=== PATIENT | female | born 1995 | race Caucasian/White ===

== ENCOUNTER 2023-06-20 08:57 | Outpatient (AMB) | payer OTHER, SELFPAY ==
[2023-06-20 09:00] VITALS: BP 112/66; PULSE 82; RESP 13; TEMP 36.6; O2SAT 99; BMI 21.5
--- NOTE | 2023-06-20 09:00 | A.OFFPC_ITS ---
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 Required: No Accompanied by: Self / Same As Patient Allergies No Known Allergies Allergy (Verified 06/20/23 09:31) Medication List - Last Reconciled 06/20/23 by Irvin Langston CNP buspirone 7.5 mg PO BID fluoxetine 40 mg PO DAILY hydroxyzine pamoate 25 - 50 mg PO BEDTIME PRN lamotrigine 100 mg PO DAILY norethindrone-e.estradiol-iron 1 mg-20 mcg (21)/75 mg (7) (08/03 ()) 1 tab PO DAILY Tobacco use date assessed: 06/20/23 Dental Screening Dental Screen Date: 06/20/23 Did you have a dental visit in the last 12 months?: No Did you have a dental problem in the last 6 months where you did not have access to dental care?: No Was dental information given to patient?: Yes HPI HPI Comments History of Present Illness Details New patient Prior PCP:?clark Cheng Last office visit/CPE: Over 10 years Last routine blood work: Over 5 years Acute issue(s): Bipolar 1 disorder, anxiety, depression -She is on buspirone 7.5 mg twice daily, fluoxetine 40 mg daily, hydroxyzine 25- 50 mg as needed at bedtime, and lamotrigine 100 mg daily She is followed by a psychiatrist via telehealth from [facility]. She sees her psychiatrist every 2 months. Her psychiatrist manages her psychotropic medication PMHx: Bipolar 1 disorder, anxiety, depression, and eating disorder (childhood) SurgHx:Exlap and Biopsy 2009 FHx: Mom: Asthma, clotting disorder, DM. Dad: Psychiatric disorder. MGM: Cancer. MGF: HTN, HLD. PGF: HTN, HLD, psychiatric disorder SocHx: Nonsmoker. Occasional drinker. Smokes cannabis 2 times weekly. She denies acute symptoms at this time She notes that her last pap smear test was in 08/2022 with [facility] Women's Health: normal She notes that she is sexually active, in a monogamous relationship, and practices safe sex [facility] Medical History (Updated 06/20/23 @ 14:15 by Alison Ferris MA) Eating disorder Bipolar 1 disorder Depression Anxiety Surgical History (Updated 06/20/23 @ 09:10 by Alison Ferris MA) Hx of tonsillectomy [place] teeth removed Family History (Updated 06/20/23 @ 09:13 by Alison Ferris MA) Mother Asthma Diabetes Clotting disorder Father Psychiatric disorder Maternal Grandmother Cancer Maternal Grandfather High blood pressure High cholesterol Paternal Grandfather Psychiatric disorder High blood pressure High cholesterol Social History Housing: House Patient Tobacco Use Status: Never used Tobacco e-Cigarette/Vaping Use: Never Used service: No Current occupational status: unemployed Cognitive needs: No Hearing needs: No Vision needs: No Questionnaire PHQ-9 Over the last 2 weeks, how often have you been bothered by any of the following problems? 1. Little interest or pleasure in doing things: several days 2. Feeling down, depressed, or hopeless: several days 3. Trouble falling or staying asleep, or sleeping too much: nearly every day 4. Feeling tired or having little energy: several days 5. Poor appetite or overeating: several days 6. Feeling bad about yourself - or that you are a failure or have let yourself or your family down: several days 7. Trouble concentrating on things, such as reading the newspaper or watching television: not at all 8. Moving or speaking so slowly that other people could have noticed. Or the opposite - being so fidgety or restless that you have been moving around a lot more than usual: not at all 9. Thoughts that you would be better off or of hurting yourself in some way: not at all Total score: 8 Depression Screening Interpretation: Positive Depression Screening Follow-up: Existing condition and In treatment Depression Screening Done: Yes 59782 - PHQ-9 Billing: Yes Source: Developed by Drs. Jonh Lamas, Precious Granados, Angel Hickman and colleagues, with an educational josé from [employer]. Thrive Questionnaire Date Thrive assessed: 06/20/23 I am a: Patient What is your living situation today?: I have a steady place to live Within the past 12 months, did the food you bought not last and you didn't have the money to get more?: Never true Within the past 12 months, did you worry whether your food would run out before you got money to buy more?: Never true Do you have trouble paying for medicines?: No Do you have trouble getting transportation to medical appointments?: No Do you have trouble paying your heating and electricity bill?: No Do you have trouble taking care of your child, family member or friend?: No Do you have trouble with day-to-day activities such as bathing, preparing meals, shopping, managing finances, etc.?: No Are you currently unemployed and looking for a job?: No Are you interested in more education?: No Please select the resources that you would like help with: None Currently or been in a relationship where the following occur: no concerns reported AUDIT C Alcohol Use Questionnaire (AUDIT-C) 1. How often do you have a drink containing alcohol?: Monthly or less 2. How many drinks containing alcohol do you have on a typical day when you are drinking?: 1 or 2 3. How often do you have six or more drinks on one occasion?: Less than monthly Total Score: 2 ANAYA-7 AMB Questionnaire ANAYA-7 Date ANAYA - 7 assessed: 06/20/23 Feeling nervous, anxious, or on edge: 1 = Several days Not being able to stop or control worryin = Several days Worrying too much about different things: 1 = Several days Trouble relaxin = Several days Being so restless that it is hard to sit still: 0 = Not at all Becoming easily annoyed or irritable: 1 = Several days Feeling afraid as if something awful might happen: 1 = Several days Total ANAYA-7 score (0-4 normal; 5-9 mild; 10-14 moderate; 15-21 severe): 6 Source: Developed by Drs. Jonh Lamas, Precious Granados, Angel Hickman and colleagues, with an educational josé from [employer]. ANAYA-7 Assessment Billing ANAYA-7 Assessment Tool: ANAYA-7 Assessment 84474 Physical exam (Primary Care) Vital Signs: Last Vital Signs Temp 97.8 F 06/20/23 09:00 Pulse 82 06/20/23 09:00 Resp 13 06/20/23 09:00 BP 112/66 06/20/23 09:00 Pulse Ox 99 06/20/23 09:00 Oxygen Delivery Method Room Air 06/20/23 09:00 BMI result Body Mass Index 21.5 Tobacco/Smoking Status: Tobacco use Status Tobacco use date assessed 06/20/23 06/20/23 09:15 Patient Tobacco Use Status Never used Tobacco 06/20/23 09:15 e-Cigarette/Vaping Use Never Used 06/20/23 09:15 PHQ-9: PHQ-9 Score PHQ-9: Total score 8 06/20/23 12:24 Depression Screening Interpretation: Positive Depression Screening Follow-up: Existing condition and In treatment Thrive Assessment: Date of Thrive Assessment Date Thrive assessed 06/20/23 06/20/23 09:15 Currently or been in a relationship where the following occur: no concerns reported Assessment and Plan Assessment & Plan (1) Normal physical examination, routine: Code(s): Z00.00 - Encounter for general adult medical examination without abnormal findings Plan: Normal physical exam of a 27-year-old female No significant physical restrictions or limitations noted Continue current treatment regimen Advised to get routine blood work done and schedule a telehealth visit for labs review Return with symptoms or concerns Verbalized understanding and agreed with treatment plan (2) Anxiety: Code(s): F41.9 - Anxiety disorder, unspecified Plan: Reports controlled anxiety, depression, and bipolar symptoms on current treatment regimen PHQ-9 and ANAYA-7 scores revealed mild depression and anxiety respectively Continue current treatment regimen Continue follow-up with psychiatrist as planned Return with worsening or new symptoms Verbalized understanding and agreed with treatment plan (3) Depression: Code(s): F32.A - Depression, unspecified Plan: As above (4) Bipolar 1 disorder: Code(s): F31.9 - Bipolar disorder, unspecified Plan: As above (5) Laboratory tests ordered as part of a complete physical exam (CPE): Code(s): Z00.00 - Encounter for general adult medical examination without abnormal findings Plan: Fasting labs ordered as part of a complete physical exam. Advised to fast for at least 10 hours before getting labs drawn. May drink water Verbalized understanding and agreed with treatment plan. Orders: Orders Complete Blood Count Auto Diff Today Z00.00 - Encounter for general adult medical examination without abnormal findings Comprehensive [place]. Panel Fast Today Z00.00 - Encounter for general adult medical examination without abnormal findings Lipid Panel Today Z00.00 - Encounter for general adult medical examination without abnormal findings TSH reflex Free T4 Today Z00.00 - Encounter for general adult medical examination without abnormal findings UA CC w/rflx Micro + Cult Today Z00.00 - Encounter for general adult medical examination without abnormal findings Coding Level of Care Code New Pt Prev Care 18-39yr([id number] Diagnoses Normal physical examination, routine Z00.00 Anxiety F41.9 Depression F32.A Bipolar 1 disorder F31.9 Laboratory tests ordered as part of a complete physical exam (CPE) Z00.00 Additional Codes ANAYA-7 Assessment Billing - ANAYA-7 Assessment Tool: ANAYA-7 Assessment [id number] ([id number])
== END 2023-06-20 10:03 | disposition home or self-care (01) ==
PROVIDERS: PCP Nurse Practitioner Family; Visit Provider Nurse Practitioner Family
DX: Z00.00 Encounter for general adult medical examination without abnormal findings (principal); F41.9 Anxiety disorder, unspecified; F31.9 Bipolar disorder, unspecified
CPT/HCPCS: 96127; 99385

== ENCOUNTER 2024-07-20 11:34 | Outpatient (AMB) | payer OTHER, SELFPAY ==
--- NOTE | 2024-07-20 11:42 | A.OFFPC_ITS ---
Vital Signs 07/20/24 11:46 Height 5 ft 7 in Weight 145 lb 4 oz BMI 22.7 BP 94/62 Blood Pressure Location Lt brachial Position Sitting Pulse 103 H Pulse Source Pulse Oximeter Pulse Oximetry (%) 98 Oxygen Delivery Method Room Air Intake Visit Reasons: dariusz trying to get Allergies No Known Allergies Allergy (Verified 07/20/24 11:43) Tobacco use date assessed: 07/20/24 Dental Screening Dental Screen Date: 06/20/23 HPI HPI Comments History of Present Illness Details 28 year old female with past medical his tory of bipolar disorder, anxiety, depression, presenting to [facility] care. Internal transfer Psych: Bipolar 1 disorder, anxiety, depression. Follows with psychiatry. She is on buspirone 7.5 mg twice daily, fluoxetine 40 mg daily, hydroxyzine 25-50 mg as needed at bedtime, and lamotrigine 100 mg daily She notes that her last pap smear test was in 08/2022 with [facility] Women's Health: normal. She recently went off control as she is trying to get . Requests routine labs ROS CONSTITUTIONAL: Denies weight loss, fever and chills. HEENT: Denies changes in vision and hearing. RESPIRATORY: Denies SOB and cough. CV: Denies palpitations and CP GI: Denies abdominal pain, nausea, vomiting and diarrhea. : Denies dysuria and urinary frequency. MSK: Denies new myalgia and joint pain. SKIN: Denies rash and pruritus. NEUROLOGICAL: Denies headache PSYCHIATRIC: Denies recent changes in mood. PHYSICAL EXAM: GENERAL: Alert and oriented x 3. NAD EYES: EOMI. Anicteric. HENT: Moist mucous membranes. No scleral icterus. No cervical lymphadenopathy. LUNGS: Clear to auscultation bilaterally. CARDIOVASCULAR: Regular rate and rhythm. No murmur. No JVD. ABDOMEN: Soft, non-tender +bs EXTREMITIES: No edema. Non-tender. SKIN: No rashes or lesions. Warm. NEUROLOGIC: No focal neurological deficits. CN II-XII grossly intact PSYCHIATRIC: Cooperative. Appropriate mood and affect [facility] Medical History Eating disorder Bipolar 1 disorder Depression Anxiety Surgical History Hx of tonsillectomy [place] teeth removed Family History Mother Asthma Diabetes Clotting disorder Father Psychiatric disorder Maternal Grandmother Cancer Maternal Grandfather High blood pressure High cholesterol Paternal Grandfather Psychiatric disorder High blood pressure High cholesterol Social History Housing: House Alcohol intake: current Comment: Once a month Patient Tobacco Use Status: Never used Tobacco e-Cigarette/Vaping Use: Never Used Substance Use Type: Former Substance User and Marijuana service: No Current occupational status: unemployed Cognitive needs: No Hearing needs: No Vision needs: No Questionnaire PHQ-9 Over the last 2 weeks, how often have you been bothered by any of the following problems? 1. Little interest or pleasure in doing things: not at all 2. Feeling down, depressed, or hopeless: not at all 3. Trouble falling or staying asleep, or sleeping too much: not at all 4. Feeling tired or having little energy: not at all 5. Poor appetite or overeating: not at all 6. Feeling bad about yourself - or that you are a failure or have let yourself or your family down: not at all 7. Trouble concentrating on things, such as reading the newspaper or watching television: not at all 8. Moving or speaking so slowly that other people could have noticed. Or the opposite - being so fidgety or restless that you have been moving around a lot more than usual: not at all 9. Thoughts that you would be better off or of hurting yourself in some way: not at all Total score: 0 Depression Screening Interpretation: Negative Depression Screening Done: Yes 10919 - PHQ-9 Billing: Yes Source: Developed by Drs. Jonh Lamas, Precious Granados, Angel Hickman and colleagues, with an educational josé from [employer]. Thrive Questionnaire Date Thrive assessed: 07/13/24 I am a: Patient What is your living situation today?: I have a steady place to live Within the past 12 months, did the food you bought not last and you didn't have the money to get more?: Never true Within the past 12 months, did you worry whether your food would run out before you got money to buy more?: Never true Do you have trouble paying for medicines?: No Do you have trouble getting transportation to medical appointments?: No Do you have trouble paying your heating and electricity bill?: No Do you have trouble taking care of your child, family member or friend?: No Do you have trouble with day-to-day activities such as bathing, preparing meals, shopping, managing finances, etc.?: No Are you currently unemployed and looking for a job?: No Are you interested in more education?: No Please select the resources that you would like help with: None Currently or been in a relationship where the following occur: No concerns reported THRIVE Score: 0 AUDIT C Alcohol Use Questionnaire (AUDIT-C) 1. How often do you have a drink containing alcohol?: Monthly or less 2. How many drinks containing alcohol do you have on a typical day when you are drinking?: 1 or 2 3. How often do you have six or more drinks on one occasion?: Never Total Score: 1 ANAYA-7 AMB Questionnaire ANAYA-7 Date ANAYA - 7 assessed: 06/20/23 Feeling nervous, anxious, or on edge: 1 = Several days Not being able to stop or control worryin = Several days Worrying too much about different things: 1 = Several days Trouble relaxin = Not at all Being so restless that it is hard to sit still: 0 = Not at all Becoming easily annoyed or irritable: 1 = Several days Feeling afraid as if something awful might happen: 1 = Several days Total ANAYA-7 score (0-4 normal; 5-9 mild; 10-14 moderate; 15-21 severe): 5 Source: Developed by Drs. Jonh Lamas, Precious Granados, Angel Hickman and colleagues, with an educational josé from [employer]. Physical exam (Primary Care) Vital Signs: Last Vital Signs Pulse 103 H 07/20/24 11:46 BP 94/62 07/20/24 11:46 Pulse Ox 98 07/20/24 11:46 Oxygen Delivery Method Room Air 07/20/24 11:46 BMI result Body Mass Index 22.7 Tobacco/Smoking Status: Tobacco use Status Tobacco use date assessed 07/20/24 07/20/24 11:48 Patient Tobacco Use Status Never used Tobacco 07/20/24 11:48 e-Cigarette/Vaping Use Never Used 07/20/24 11:48 PHQ-9: PHQ-9 Score PHQ-9: Total score 0 07/20/24 11:48 Depression Screening Interpretation: Negative Thrive Assessment: Date of Thrive Assessment Date Thrive assessed 07/13/24 07/20/24 11:48 Currently or been in a relationship where the following occur: No concerns reported Coding Level of Care Code Est Pt Level 4 (09596) Complex EM visit Add On G2211 Diagnoses Encounter to establish care Z76.89 Bipolar 1 disorder F31.9 Additional Codes PHQ-9 - 78423 - PHQ-9 Billing: Yes ([id number]) Assessment & Plan Assessment & Plan (1) Encounter to establish care: Code(s): Z76.89 - Persons encountering health services in other specified circumstances Category: Medical Plan: 28 y/o to establish care. past medical, surgical, social and family history reviewed (2) Bipolar 1 disorder: Code(s): F31.9 - Bipolar disorder, unspecified Category: Medical Plan: controlled on current medication. Following routinely with psych Orders: Orders Comprehensive Met. Panel 07/20/24 F31.9 - Bipolar disorder, unspecified, F32.A - Depression, unspecified, F41.9 - Anxiety disorder, unspecified, R35.0 - Frequency of micturition, Z13.0 - Encounter for screening for diseases of the blood and blood-forming organs and certain disorders involving the immune mechanism, Z13.228 - Encounter for screening for other metabolic disorders Lipid Panel 07/20/24 F31.9 - Bipolar disorder, unspecified, F32.A - Depression, unspecified, F41.9 - Anxiety disorder, unspecified, R35.0 - Frequency of micturition, Z13.0 - Encounter for screening for diseases of the blood and blood-forming organs and certain disorders involving the immune mechanism, Z13.228 - Encounter for screening for other metabolic disorders TSH reflex Free T4 07/20/24 F31.9 - Bipolar disorder, unspecified, F32.A - Depression, unspecified, F41.9 - Anxiety disorder, unspecified, R35.0 - Frequency of micturition, Z13.0 - Encounter for screening for diseases of the blood and blood-forming organs and certain disorders involving the immune mechanism, Z13.228 - Encounter for screening for other metabolic disorders Complete Blood Count Auto Diff 07/20/24 F31.9 - Bipolar disorder, unspecified, F32.A - Depression, unspecified, F41.9 - Anxiety disorder, unspecified, R35.0 - Frequency of micturition, Z13.0 - Encounter for screening for diseases of the blood and blood-forming organs and certain disorders involving the immune mechanism, Z13.228 - Encounter for screening for other metabolic disorders Hemoglobin A1c 07/20/24 F31.9 - Bipolar disorder, unspecified, F32.A - Depression, unspecified, F41.9 - Anxiety disorder, unspecified, R35.0 - Frequency of micturition, Z13.0 - Encounter for screening for diseases of the blood and blood-forming organs and certain disorders involving the immune mechanism, Z13.228 - Encounter for screening for other metabolic disorders
[2024-07-20 11:46] VITALS: BP 94/62; PULSE 103; O2SAT 98; BMI 22.7
== END 2024-07-20 11:58 | disposition home or self-care (01) ==
PROVIDERS: PCP Internal Medicine; Visit Provider Internal Medicine
DX: Z76.89 Persons encountering health services in other specified circumstances (principal); F31.9 Bipolar disorder, unspecified

== ENCOUNTER → 2024-07-20 11:34 | Outpatient (BNVA) | payer OTHER, SELFPAY | PROVIDERS: PCP Nurse Practitioner Family; Visit Provider Internal Medicine | DX: Z76.89 Persons encountering health services in other specified circumstances (principal); F31.9 Bipolar disorder, unspecified; F41.9 Anxiety disorder, unspecified; F32.A Depression, unspecified; Z79.899 Other long term (current) drug therapy | CPT/HCPCS: 96127 ==